=== PATIENT | female | born 1955 | race Caucasian/White ===

== ENCOUNTER 2022-01-16 09:15 | Emergency (ER) | payer MEDICARE, OTHER, SELFPAY ==
[2022-01-16 09:28] VITALS: BP 141/75; PULSE 51; RESP 16; TEMP 36.9; O2SAT 100
--- NOTE | 2022-01-16 10:39 | ED.FEMALEGU ---
HPI - Female Genitourinary General Chief complaint: Urogenital-Female Stated complaint: Urinary Problem Time Seen by Provider: 01/16/22 10:39 Source: patient, RN notes reviewed and old records reviewed Mode of arrival: ambulatory Limitations: no limitations History of Present Illness HPI Narrative: 66-year-old female who presents to [facility] with complaints of urinary symptoms since yesterday. Patient reports frequency urgency,pain and burning with urination, lower medial abdomen and perineal pressure. Patient reports that she has taken AZO for her symptoms, Patient denies any vaginal discharge or itching, denies any concern for STD exposure. Patient denies any known fevers, chills or any nausea or vomiting or any CVA tenderness. MD elicited complaint: UTI Severity scale (1-10): 9 Quality of pain: burning and aching Related Data Home Medications Medication Instructions Recorded Confirmed alprazolam 0.5 mg tablet 0.5 mg PO TID PRN Anxiety 01/16/22 01/16/22 aspirin 81 mg chewable tablet 81 mg PO DAILY 01/17/22 01/17/22 ezetimibe 10 mg tablet 10 mg PO DAILY 01/17/22 01/17/22 fluticasone propionate 230 2 puff inhalation BID 01/17/22 01/17/22 mcg-salmeterol 21 mcg/actuation HFA inhaler (Advair HFA) furosemide 40 mg tablet (Lasix) 40 mg PO DAILY 01/17/22 01/17/22 ipratropium 0.5 mg-albuterol 3 mg 3 ml inhalation QID PRN sob 01/17/22 01/17/22 (2.5 mg base)/3 mL nebulization soln isosorbide mononitrate 60 mg 60 mg PO BID 01/17/22 01/17/22 tablet,extended release 24 hr levalbuterol HCl 1.25 mg/3 mL 2.5 mg inhalation Q4H 01/17/22 01/17/22 solution for nebulization levalbuterol tartrate 45 2 inh inhalation Q6H 01/17/22 01/17/22 mcg/actuation aerosol inhaler (Xopenex HFA) nebivolol 5 mg tablet 5 mg PO DAILY 01/17/22 01/17/22 nitroglycerin 0.4 mg sublingual 0.4 mg sublingual Q5-15M PRN Chest 01/17/22 01/17/22 tablet Pain pantoprazole 20 mg tablet,delayed 40 mg PO BID 01/17/22 01/17/22 release potassium chloride 20 mEq 20 meq PO BID 01/17/22 01/17/22 tablet,extended release rosuvastatin 40 mg tablet 40 mg PO DAILY 01/17/22 01/17/22 spironolactone 50 mg tablet 50 mg PO DAILY 01/17/22 01/17/22 Allergies Allergy/AdvReac Type Severity Reaction Status Date / Time No Known Allergies Allergy Unverified 01/16/22 09:54 Review of Systems Review of Systems: CONSTITUTIONAL: Denies fever, chills, or sweats. CARDIOVASCULAR: Denies chest pain, palpitations, or edema. RESPIRATORY: Denies cough or dyspnea. GASTROINTESTINAL: Reports lower medial abdomen pressure and perineal pressure, no nausea, vomiting, or diarrhea. GENITOURINARY: Reports dysuria, frequency, urgency, voiding small amounts and dribbling, Denies flank pain or hematuria. SKIN: Denies rash or itching. MUSCULOSKELETAL: Denies back pain or myalgia. Denies CVA tenderness NEUROLOGIC: Denies headache All systems reviewed & are unremarkable except as noted in HPI and below PMFSH Past Medical History Medical History (Updated 01/20/22 @ 17:48 by Rosa Gauthier NP) Anxiety and depression Asthma CAD (coronary artery disease) Elevated cholesterol GERD (gastroesophageal reflux disease) Hypertension UTI (urinary tract infection) Surgical History Surgical History (Updated 01/20/22 @ 17:46 by Rosa Gauthier NP) H/O gastric sleeve H/O heart bypass surgery History of ankle surgery right ankle fusion History of arthroscopy of both knees History of hysterectomy History of total right knee replacement Social History Social History (Updated 01/20/22 @ 17:51 by Rosa Gauthier NP) Smoking status: Never smoker Alcohol intake: unknown Substance use: never Gender identity (if verbalized by the patient): Female Comments At time of signature, agree with nursing past medical, surgical, social and family history. There is no relevant family history pertinent to the presenting complaint Exam Narrative: GENERAL: Well-appearing, wel
== END 2022-01-16 10:50 | disposition home or self-care (01) ==
PROVIDERS: Emergency Provider Registered Nurse; PCP Internal Medicine
DX: N39.0 Urinary tract infection, site not specified (principal)
CPT/HCPCS: 81003; 87077; 87086; 87147; 87181; 87186; 99203; G0463